=== PATIENT | female | born 1955 | race Caucasian/White ===

== ENCOUNTER 2017-07-29 10:31 | Inpatient (IN) | payer OTHER ==
[~2017-07-29] VITALS: Ht 157.5 cm; Wt 62.7 kg
[2017-07-29] MEDS ORDERED: SODIUM CHLORIDE 0.9% 1,000 ML IV ONE (10:48)
[2017-07-29] MEDS ORDERED: SODIUM CHLORIDE 0.9% 1,000ML IVBOLUS ONE ×2 (11:00→13:30)
[2017-07-29 11:17] LABS: BASOPHILS % (AUTO) 0 % (0-1); EOSINOPHILS % (AUTO) 0 % (1-7); LYMPHOCYTES # (AUTO) 0.41 x10^3/uL (1-3.4); LYMPHOCYTES % (AUTO) 4 % (22-44); MD NO; MEAN CORPUSCULAR HEMOGLOBIN 32.8 pg (27.0-34.8); MEAN CORPUSCULAR HGB CONC 34.4 g/dL (32.4-35.8); MEAN CORPUSCULAR VOLUME 95.2 fL (80-100); MEAN PLATELET VOLUME 6.9 fL (7.4-10.4); MONOCYTES # (AUTO) 0.92 x10^3/uL (0.2-0.8); MONOCYTES % (AUTO) 9 % (2-9); NEUTROPHILS # (AUTO) 8.78 x10^3/uL (1.8-6.8); NEUTROPHILS % (AUTO) 87 % (42-75); PLATELET COUNT 220 x10^3/uL (130-400); RED BLOOD COUNT 5.07 x10^6/uL (3.82-5.3); RED CELL DISTRIBUTION WIDTH 12.1 % (9.6-15.2)
[2017-07-29 11:30] LABS: ALBUMIN 3.6 g/dL (3.4-5.0); ANION GAP 9 mmol/L (5-15); CALCIUM 8.9 mg/dL (8.5-10.1); CHLORIDE 99 mmol/L (98-107); CREATININE 0.76 mg/dL (0.55-1.02)
[2017-07-29] MEDS ORDERED: ALBUTEROL SULFATE 2.5 MG/3 ML NPPB ONE (11:30)
[2017-07-29] MEDS ORDERED: AZITHROMYCIN 500 MG in SODIUM CHLORIDE 0.9% 250 ML IV ONE (11:30)
[2017-07-29] MEDS ORDERED: methylPREDNISolone SOD SUCC 125 MG/2 ML IVP ONE (11:30)
[2017-07-29] MEDS ORDERED: ALBUTEROL SULFATE 2.5 MG/3 ML ONE (11:41)
[2017-07-29 12:03] LABS: RAPID INFLUENZA A Negative (Negative); RAPID INFLUENZA B Negative (Negative)
[2017-07-29] MEDS ORDERED: OMNIPAQUE 350 MG/ML, 100ML BOTTLE ONE (12:15)
[2017-07-29] MEDS ORDERED: methylPREDNISolone SOD SUCC 125 MG/2 ML ONE (12:18)
[2017-07-29] MEDS ORDERED: POTASSIUM CHLORIDE 20 MEQ TAB.ER.PRT PO ONE (13:00)
[2017-07-29] MEDS ORDERED: CEFTRIAXONE PMX 2GM/50ML 50 ML IV ONE (13:00)
[2017-07-29] MEDS ORDERED: POTASSIUM CHLORIDE 20 MEQ TAB.ER.PRT ONE (13:23)
[2017-07-29] MEDS ORDERED: CEFTRIAXONE PMX 2GM/50ML 50 ML ONE (13:23)
[2017-07-29] MEDS ORDERED: BISACODYL 10 MG SUPP PR PRN (14:00)
[2017-07-29] MEDS ORDERED: ZOLPIDEM 5MG TABLET PO PRN (14:00)
[2017-07-29] MEDS ORDERED: PHARMACY MAY ADJ FOR RENAL FX MC PRN (14:00)
[2017-07-29] MEDS ORDERED: CEFTRIAXONE PMX 1GM/50ML 50 ML IVPB SCH (14:00)
[2017-07-29] MEDS ORDERED: GUAIFENESIN/DM 200-20MG, 10ML UDC PO PRN (14:00)
[2017-07-29] MEDS ORDERED: ACETAMINOPHEN 325 MG TABLET PO PRN (14:00)
[2017-07-29] MEDS ORDERED: ONDANSETRON 2MG/ML, 2ML IVPB PRN (14:00)
[2017-07-29] MEDS: AZITHROMYCIN 500 MG in SODIUM CHLORIDE 0.9% 250 ML IV SCH (14:10)
[2017-07-29] MEDS ORDERED: ALBUTEROL/IPRATROPIUM 2.5MG/0.5MG, 3 ML ONE (14:21)
[2017-07-29] MEDS: methylPREDNISolone SOD SUCC 40 MG/ML IV SCH ×2 (14:30→20:50)
[2017-07-29] MEDS: ALBUTEROL/IPRATROPIUM 2.5MG/0.5MG, 3 ML NPPB SCH ×2 (14:33→22:07)
[2017-07-29] MEDS ORDERED: CEFTRIAXONE PMX 1GM/50ML 50 ML ONE (15:04)
[2017-07-29 15:30] VITALS: BP 134/80
[2017-07-29] MEDS: ENOXAPARIN 40 MG/0.4 ML SQ SCH (16:16)
[2017-07-29] MEDS: POTASSIUM CHLORIDE 20 MEQ, MAGNESIUM SULFATE 1 GM, MVI ADULT 10 ML, FOLIC ACID 1 MG in ... IV SCH (16:16)
[2017-07-29] MEDS: INSULIN ASPART 100 UNITS/ML, PEN SQ-INSULIN SCH ×2 (18:34→20:51)
[2017-07-29 19:33] LABS: MICROSCOPIC INDICATED
[2017-07-29 20:00] VITALS: BP 136/87
[2017-07-29 20:13] LABS: CULTURE INDICATED? NO
[2017-07-29] MEDS: FAMOTIDINE 20 MG TABLET PO SCH (20:50)
[2017-07-30] MEDS: methylPREDNISolone SOD SUCC 40 MG/ML IV SCH ×2 (02:48→09:04)
[2017-07-30 02:52] VITALS: BP 134/83
[2017-07-30 05:02] LABS: BASOPHILS % (AUTO) 0 % (0-1); EOSINOPHILS % (AUTO) 0 % (1-7); LYMPHOCYTES # (AUTO) 0.37 x10^3/uL (1-3.4); LYMPHOCYTES % (AUTO) 8 % (22-44); MD NO; MEAN CORPUSCULAR HEMOGLOBIN 32.6 pg (27.0-34.8); MEAN CORPUSCULAR HGB CONC 34.3 g/dL (32.4-35.8); MEAN CORPUSCULAR VOLUME 95.1 fL (80-100); MEAN PLATELET VOLUME 6.7 fL (7.4-10.4); MONOCYTES # (AUTO) 0.33 x10^3/uL (0.2-0.8); MONOCYTES % (AUTO) 7 % (2-9); NEUTROPHILS # (AUTO) 4.25 x10^3/uL (1.8-6.8); NEUTROPHILS % (AUTO) 86 % (42-75); PLATELET COUNT 219 x10^3/uL (130-400); RED BLOOD COUNT 4.23 x10^6/uL (3.82-5.3); RED CELL DISTRIBUTION WIDTH 12.2 % (9.6-15.2)
[2017-07-30 05:11] LABS: ANION GAP 6 mmol/L (5-15); CALCIUM 8.2 mg/dL (8.5-10.1); CHLORIDE 106 mmol/L (98-107)
[2017-07-30 05:12] LABS: CREATININE 0.48 mg/dL (0.55-1.02)
[2017-07-30 06:56] VITALS: BP 129/86
[2017-07-30] MEDS: ALBUTEROL/IPRATROPIUM 2.5MG/0.5MG, 3 ML NPPB SCH ×4 (07:00→20:50)
[2017-07-30] MEDS: INSULIN ASPART 100 UNITS/ML, PEN SQ-INSULIN SCH ×4 (07:00→21:53)
[2017-07-30] MEDS: FAMOTIDINE 20 MG TABLET PO SCH ×2 (09:04→21:09)
[2017-07-30] MEDS ORDERED: NICOTINE 7 MG/24 HR PATCH.TD24 TD SCH (13:00)
[2017-07-30] MEDS ORDERED: CEFTRIAXONE PMX 2GM/50ML 50 ML IV SCH (13:00)
[2017-07-30] MEDS: POTASSIUM CHLORIDE 20 MEQ, MAGNESIUM SULFATE 1 GM, MVI ADULT 10 ML, FOLIC ACID 1 MG in ... IV SCH (13:31)
[2017-07-30 13:37] VITALS: BP 110/70
[2017-07-30] MEDS: ENOXAPARIN 40 MG/0.4 ML SQ SCH (14:06)
[2017-07-30] MEDS: AZITHROMYCIN 500 MG in SODIUM CHLORIDE 0.9% 250 ML IV SCH (14:06)
[2017-07-30 19:12] VITALS: BP 133/75
[2017-07-31 03:06] VITALS: BP 160/88
[2017-07-31 06:32] VITALS: BP 168/90
[2017-07-31] MEDS: ALBUTEROL/IPRATROPIUM 2.5MG/0.5MG, 3 ML NPPB SCH ×3 (07:00→19:15)
[2017-07-31] MEDS: INSULIN ASPART 100 UNITS/ML, PEN SQ-INSULIN SCH ×4 (07:00→21:00)
[2017-07-31] MEDS: FAMOTIDINE 20 MG TABLET PO SCH ×2 (08:32→22:16)
[2017-07-31] MEDS ORDERED: NICOTINE 14MG/24 HR PATCH.TD24 TD SCH (11:00)
[2017-07-31] MEDS: CEFTRIAXONE 2,000 MG in DEXTROSE 5% 50 ML IV SCH (13:30)
[2017-07-31] MEDS ORDERED: ALBUTEROL/IPRATROPIUM 2.5MG/0.5MG, 3 ML ONE (13:52)
[2017-07-31 14:00] VITALS: BP 163/97
[2017-07-31] MEDS ORDERED: AZITHROMYCIN 500 MG TABLET ONE (14:10)
[2017-07-31] MEDS: ENOXAPARIN 40 MG/0.4 ML SQ SCH (14:13)
[2017-07-31] MEDS: POTASSIUM CHLORIDE 20 MEQ, MAGNESIUM SULFATE 1 GM, MVI ADULT 10 ML, FOLIC ACID 1 MG in ... IV SCH (14:13)
[2017-07-31] MEDS ORDERED: AZITHROMYCIN 500 MG TABLET PO SCH ×2 (14:30)
[2017-07-31 19:35] VITALS: BP 157/104
[2017-07-31] MEDS ORDERED: NICOTINE 7 MG/24 HR PATCH.TD24 TD SCH (21:00)
[2017-08-01 02:46] VITALS: BP 156/115
[2017-08-01] MEDS ORDERED: LABETALOL 5MG/ML, 20ML IVPush PRN (04:30)
[2017-08-01 05:53] VITALS: BP 181/96
[2017-08-01] MEDS: INSULIN ASPART 100 UNITS/ML, PEN SQ-INSULIN SCH ×2 (07:00→11:00)
[2017-08-01 07:05] LABS: ANION GAP 8 mmol/L (5-15); CALCIUM 8.6 mg/dL (8.5-10.1); CHLORIDE 107 mmol/L (98-107)
[2017-08-01 07:06] LABS: CREATININE 0.52 mg/dL (0.55-1.02)
[2017-08-01 07:11] LABS: TROPONIN I < 0.015 ng/mL (0.000-0.045)
[2017-08-01] MEDS: ALBUTEROL/IPRATROPIUM 2.5MG/0.5MG, 3 ML NPPB SCH (07:13)
[2017-08-01 08:54] VITALS: BP 146/83
[2017-08-01] MEDS: FAMOTIDINE 20 MG TABLET PO SCH (08:58)
[2017-08-01] MEDS ORDERED: AZITHROMYCIN 500 MG TABLET PO SCH ×3 (09:00→14:30)
[2017-08-01] MEDS ORDERED: PRED5TAB PO (12:34)
[2017-08-01] MEDS ORDERED: CEFD300C37 PO (12:34)
[2017-08-01] MEDS ORDERED: ACET325T14 PO (12:34)
[2017-08-01] MEDS ORDERED: AZIT500T5 PO (12:34)
[2017-08-01] MEDS ORDERED: FAMO20TA7 PO (12:34)
[2017-08-01] MEDS ORDERED: IPRA3AMP NPPB (12:34)
[2017-08-01] MEDS: CEFTRIAXONE 2,000 MG in DEXTROSE 5% 50 ML IV SCH (13:30)
[2017-08-01] MEDS: ENOXAPARIN 40 MG/0.4 ML SQ SCH (14:00)
== END 2017-08-01 15:05 | disposition home or self-care (01) | DRG 193 ==
LOC: ED 12:37 → EDIP 12:48 → 4WST 15:08 → DCLOUNGE 08-01 14:50
PROVIDERS: ADMIT Internal Medicine; ATTEND Internal Medicine
DX: J18.9 Pneumonia, unspecified organism (principal); J96.01 Acute respiratory failure with hypoxia; J44.0 Chronic obstructive pulmonary disease with (acute) lower respiratory infection; E87.1 Hypo-osmolality and hyponatremia; J44.1 Chronic obstructive pulmonary disease with (acute) exacerbation; F17.210 Nicotine dependence, cigarettes, uncomplicated; E87.6 Hypokalemia; T38.0X5A Adverse effect of glucocorticoids and synthetic analogues, initial encounter; R73.9 Hyperglycemia, unspecified; Z90.710 Acquired absence of both cervix and uterus; Z83.3 Family history of diabetes mellitus; Z85.42 Personal history of malignant neoplasm of other parts of uterus
CPT/HCPCS: 36415; 71045; 71275; 80048; 81001; 82040; 82306; 82607; 82962; 83605; 83735; 84145; 84484; 85025; 87040; 87070; 87205; 87400; 93005; 93306; 94640; 96361; 96365; 96375; J0456; J0696; J1650; J1815; J3475; J3480; J7613; J7620; Q9967; J2920; J2930; J7030; J7050; J7512